=== PATIENT | male | born 1945 | race Caucasian/White ===

== ENCOUNTER 2020-07-07 10:05 | Emergency (ER) | payer MEDICARE, MEDICAID ==
[~2020-07-07] VITALS: Ht 190.5 cm; Wt 104.5 kg
[~2020-07-07 10:05] MED LIST: APIX5TAB3 PO; ATOR-2 PO; CALC0.253 PO; CLOP75TA34 PO; DOXA4TAB5 PO; ERGO500041 PO; FURO40TA4 PO; METO50TA16 PO
[2020-07-07 10:44] VITALS: BP 124/71
[2020-07-07] MEDS ORDERED: CLOT24CR2 TOP (16:20)
[2020-07-07] MEDS ORDERED: CEPH-585 PO (16:20)
== END 2020-07-07 16:40 | disposition home or self-care (01) ==
LOC: ER 10:06
DX: R21 Rash and other nonspecific skin eruption (principal); I48.91 Unspecified atrial fibrillation; E78.00 Pure hypercholesterolemia, unspecified; F17.200 Nicotine dependence, unspecified, uncomplicated; F12.90 Cannabis use, unspecified, uncomplicated; I12.9 Hypertensive chronic kidney disease with stage 1 through stage 4 chronic kidney disease, or unspecified chronic kidney disease; N18.9 Chronic kidney disease, unspecified; Z86.73 Personal history of transient ischemic attack (TIA), and cerebral infarction without residual deficits; Z98.890 Other specified postprocedural states; Z79.2 Long term (current) use of antibiotics; Z79.899 Other long term (current) drug therapy
CPT/HCPCS: 99283